=== PATIENT | male | born 1975 | race Caucasian/White ===

== ENCOUNTER 2019-07-15 15:40 | Emergency (ER) | payer SELFPAY ==
[~2019-07-15] VITALS: Ht 172.7 cm; Wt 78.9 kg
[2019-07-15 15:44] VITALS: Ht 172.7 cm; Wt 78.9 kg
[2019-07-15 18:54] LABS: CALCIUM 9.2 mg/dL (8.5-10.1); CARBON DIOXIDE 28.8 mmol/L (21-32); CHLORIDE SERUM 106 mmol/L (98-107); CREATININE SERUM 0.8 mg/dL (0.7-1.3); GFR1 > 60 mL/min; GLUCOSE SERUM 92 mg/dL (74-106); SODIUM SERUM 142 mmol/L (136-145)
[2019-07-15 18:58] LABS: BASOPHIL % 0.3 % (0-2); PLATELET COUNT 295 x10^3mcL (130-400); RED CELL DISTRIBUTION WIDTH 12.9 % (11.5-14.5)
[2019-07-15 20:58] VITALS: BP 118/72
== END 2019-07-15 20:58 | disposition home or self-care (01) ==
LOC: ED 15:40
PROVIDERS: Emergency Medicine
DX: J40 Bronchitis, not specified as acute or chronic (principal); F17.200 Nicotine dependence, unspecified, uncomplicated; Z03.818 Encounter for observation for suspected exposure to other biological agents ruled out
CPT/HCPCS: 36415; 99406; Q0092